=== PATIENT | female | born 2000 | race Caucasian/White ===

== ENCOUNTER 2022-01-20 06:45 | Emergency (ER) | payer OTHER ==
[~2022-01-20] VITALS: Ht 162.6 cm; Wt 66.7 kg
[2022-01-20 06:55] VITALS: BP 120/77
--- NOTE | 2022-01-20 06:55 | NUR ---
TO BED AMBULATORY
--- NOTE | 2022-01-20 07:25 | NUR ---
PT REFUSED BLOOD WORK.
--- NOTE | 2022-01-20 07:32 | NUR ---
Patient does not wish to proceed with medical care recommended by [facility]. Patient given information related to possible complications, up to and including , which could occur as a result of leaving hospital at this time. Patient verbalizes understanding of risks involved leaving against medical advice. Patient has signed AMA form.
== END 2022-01-20 07:32 | disposition left against medical advice (07) ==
LOC: MED 06:45
DX: R07.9 Chest pain, unspecified (principal)
CPT/HCPCS: 93005; 99283